=== PATIENT | male | born 1950 | race African-American/Black ===

== ENCOUNTER 2017-11-22 04:49 | Inpatient (IN) ==
[2017-11-22] MEDS ORDERED: SODIUM CHLORIDE 0.9% 2,000 ML IV STA (05:26)
[2017-11-22] MEDS ORDERED: SODIUM CHLORIDE 0.9% 1,000 ML IV STA (05:27)
[2017-11-22] MEDS ORDERED: metroNIDAZOLE INJ 500 MG in PREMIX 1 EACH IV STA (05:28)
[2017-11-22] MEDS ORDERED: VANCOMYCIN INJ 1,000 MG in SODIUM CHLORIDE 0.9% 250 ML IV STA (05:28)
[2017-11-22] MEDS ORDERED: CEFEPIME 2,000 MG in SODIUM CHLORIDE 0.9% 100 ML IV STA (05:28)
[2017-11-22] MEDS ORDERED: NOREPINEPHRINE 4 MG/4 ML VIAL IV ONE (05:36)
[2017-11-22 05:41] LABS: Basophils % 0.4 % (0.0-0.8); Hematocrit 50.1 VOL% (42.0-52.0); Hemoglobin 15.9 GM/DL (14.0-18.0); Immature Granulocytes % 1.7 %; Immature Granulocytes Absolute 0.08 #; Lymphocytes # 0.2 10*3/uL (1.4-4.0); Lymphocytes % 4.4 % (21.2-54.2); Mean Corpuscular HGB Conc 31.7 GM/DL (32-36); Mean Corpuscular Hemoglobin 31 PG (27-34); Mean Corpuscular Volume 96.2 FL (87-102); Mean Platelet Volume 11.6 FL (9.6-12.0); Monocytes # 0.1 10*3/uL (0.11-0.8); Monocytes % 2.1 % (1.7-12.7); Neutrophils # 4.4 10*3/uL (1.4-7.4); Neutrophils % 91.4 % (38.7-73.9); Platelet Count 62 T/CUMM (130-400); Red Blood Count 5.21 MC/CUMM (3.8-5.5); Red Cell Distribution Width 14.3 % (9.3-17.3); White Blood Count 4.8 T/CUMM (4-12)
[2017-11-22] MEDS: NOREPINEPHRINE 8 MG in SODIUM CHLORIDE 0.9% 242 ML IV SCH ×2 (05:45→17:44)
[2017-11-22 06:08] LABS: Hypochromasia 1+; Lymphocytes 4 % (20-55); Nucleated Red Blood Cells 2 (0-5); Platelet Estimate Decreased; Segmented Neutrophils 93 % (50-85); Total Cells Counted 100
[2017-11-22 06:19] LABS: Alanine Aminotransferase 349 U/L (16-61); Alkaline Phosphatase 265 U/L (45-117); Aspartate Amino Transferase 783 U/L (0-37); Blood Urea Nitrogen 63 MG/DL (7-18); Calcium 8.8 MG/DL (8.5-10.1); Glucose 84 MG/DL (74-106); Osmolality,Calculated 317.7 MOS/KG (273-304); Potassium 3.7 MMOL/L (3.5-5.1); Sodium 152 MMOL/L (136-145); Total Protein 5.9 G/DL (6.4-8.3)
[2017-11-22] MEDS ORDERED: ALBUTEROL 2.5 MG/3 ML NEB RESP TX PRN (07:45)
[2017-11-22] MEDS ORDERED: SODIUM CHLORIDE 0.9% 500 ML IV STA (07:58)
[2017-11-22] MEDS ORDERED: SODIUM CHLORIDE 0.9% 1,000 ML IV SCH (08:00)
[2017-11-22] MEDS ORDERED: SODIUM CHLORIDE 0.45% 1,000 ML IV SCH (08:30)
[2017-11-22] MEDS ORDERED: VANCOMYCIN 1,000 MG VIAL ONE (10:40)
[2017-11-22 10:51] LABS: Lactic Acid 2.2 MMOL/L (0.4-2.0)
[2017-11-22 11:18] LABS: Hepatitis A Ab IgM Quant 0.22 Index; Hepatitis A Ab IgM Result Negative (Negative); Hepatitis B Core IgM Quant 0.06 Index; Hepatitis B Core IgM Result Negative (Negative); Hepatitis B Surface Ag Quant < 0.10 Index; Hepatitis B Surface Ag Result Negative (Negative); Hepatitis C Virus Ab Quant 0.16 Index; Hepatitis C Virus Ab Result Negative (Negative)
[2017-11-22] MEDS ORDERED: metroNIDAZOLE 500 MG/100 ML PREMIX IV ONE (11:54)
[2017-11-22 13:06] LABS: Apearance,Urine CLOUDY (Clear); Bacteria,Urine Many /HPF (Few); Bilirubin,Urine Negative (Negative); Blood, Urine Large mg/dL (Negative); Glucose,Urine (UA) Negative (Negative); Ketones,Urine Negative (Negative); Mucus,Urine Few /LPF (Occasional); Nitrite,Urine Negative (Negative); Protein,Urine 100 MG/DL; RBC,Urine 105 /HPF (0-4); Squamous Epithelial Cell,Urine Moderate /HPF (0-10); Urine Color Amber (Yellow); Urine Specific Gravity 1.019 (1.001-1.035); WBC,Urine 1371 /HPF (0-6)
[2017-11-22] MEDS ORDERED: PIPERACILLIN/TAZOBACTAM 3,375 MG VIAL IV ONE (13:43)
[2017-11-22] MEDS: PIPERACILLIN/TAZOBACTAM 3,375 MG in SODIUM CHLORIDE 0.9% 100 ML IV SCH ×2 (13:50→18:39)
[2017-11-22] MEDS: SODIUM CHLORIDE 0.9% 1,000 ML IV SCH (14:50)
[2017-11-22] MEDS ORDERED: VANCOMYCIN INJ 1,500 MG in SODIUM CHLORIDE 0.9% 500 ML IV SCH (16:00)
[2017-11-22] MEDS ORDERED: VANCOMYCIN INJ 500 MG in SODIUM CHLORIDE 0.9% 100 ML IV ONE (16:00)
[2017-11-22] MEDS: PANTOPRAZOLE 40 MG VIAL IV SCH (18:38)
[2017-11-22 19:09] LABS: Calcium 7.8 MG/DL (8.5-10.1); Osmolality,Calculated 317.6 MOS/KG (273-304)
[2017-11-23] MEDS: PIPERACILLIN/TAZOBACTAM 3,375 MG in SODIUM CHLORIDE 0.9% 100 ML IV SCH ×4 (00:48→23:50)
[2017-11-23] MEDS: SODIUM CHLORIDE 0.9% 1,000 ML IV SCH (03:47)
[2017-11-23 05:27] LABS: Basophils % 0.2 % (0.0-0.8); Eosinophils % 0.2 % (0.00-10.9); Hemoglobin 9.2 GM/DL (14.0-18.0); Immature Granulocytes % 2.1 %; Immature Granulocytes Absolute 0.33 #; Lymphocytes # 1.2 10*3/uL (1.4-4.0); Lymphocytes % 7.4 % (21.2-54.2); Mean Corpuscular HGB Conc 30.7 GM/DL (32-36); Mean Corpuscular Hemoglobin 31 PG (27-34); Mean Platelet Volume 11.8 FL (9.6-12.0); Monocytes # 1.2 10*3/uL (0.11-0.8); Monocytes % 7.4 % (1.7-12.7); Neutrophils # 13.2 10*3/uL (1.4-7.4); Neutrophils % 82.7 % (38.7-73.9); Platelet Count 126 T/CUMM (130-400); Red Blood Count 2.97 MC/CUMM (3.8-5.5); Red Cell Distribution Width 14.6 % (9.3-17.3); White Blood Count 15.9 T/CUMM (4-12)
[2017-11-23 05:29] LABS: Albumin 1.7 G/DL (3.4-5.0); Bilirubin,Direct 0.23 MG/DL (0.0-0.20); Bilirubin,Indirect 0.9 MG/DL (0.0-1.0); Bilirubin,Total 1.1 MG/DL (0.2-1.0); Total Protein 5.6 G/DL (6.4-8.3)
[2017-11-23 06:17] LABS: Calcium 8.5 MG/DL (8.5-10.1); Osmolality,Calculated 317.3 MOS/KG (273-304)
[2017-11-23] MEDS ORDERED: MORPHINE 2 MG/1 ML SYRINGE IV ONE (08:10)
[2017-11-23] MEDS: PANTOPRAZOLE 40 MG VIAL IV SCH (09:00)
[2017-11-23] MEDS ORDERED: ETOMIDATE 40 MG/20 ML VIAL IV ONE (10:29)
[2017-11-23] MEDS ORDERED: ONDANSETRON 4 MG/2 ML VIAL ONE (10:29)
[2017-11-23] MEDS ORDERED: PHENYLEPHRINE 50 MG/5 ML VIAL ONE (10:30)
[2017-11-23] MEDS ORDERED: ROCURONIUM 100 MG/10 ML VIAL IV ONE (10:30)
[2017-11-23] MEDS ORDERED: SUCCINYLCHOLINE 200 MG/10 ML VIAL ONE (10:30)
[2017-11-23] MEDS ORDERED: SODIUM CHLORIDE 0.9% 250 ML IV ONE (10:30)
[2017-11-23 10:42] LABS: ABG Base Excess -8.2 MMOL/L (-2.5-2.5); ABG HCO3 17.6 MMOL/L (20-26); ABG Oxygen Saturation 99.2 % (95-100); ABG PCO2 37.2 MM HG (35-48); ABG PH 7.293 (7.35-7.45); ABG PO2 206.7 MM HG (80-95); ABG TCO2 18.7 MMOL/L (23-27); Allen Test Positive; Pt O2 Delivery Device Ventilator
[2017-11-23] MEDS ORDERED: LORazepam 2 MG/1 ML VIAL IV ONE (10:47)
[2017-11-23] MEDS ORDERED: VANCOMYCIN INJ 1,500 MG in SODIUM CHLORIDE 0.9% 500 ML IV SCH (11:00)
[2017-11-23] MEDS: PHENYLEPHRINE DRIP 40 MG/250 ML PREMIX IV SCH ×2 (11:00→13:19)
[2017-11-23] MEDS ORDERED: LORazepam 2 MG/1 ML VIAL IV PRN (11:17)
[2017-11-23] MEDS: SODIUM CHLORIDE 0.45% 1,000 ML IV SCH (11:30)
[2017-11-23] MEDS ORDERED: GENTAMICIN INJ 240 MG in SODIUM CHLORIDE 0.9% 100 ML IV SCH (12:30)
[2017-11-23] MEDS: MORPHINE 2 MG/1 ML SYRINGE IV PRN (12:50)
[2017-11-23] MEDS: NOREPINEPHRINE 8 MG in SODIUM CHLORIDE 0.9% 242 ML IV SCH (12:53)
[2017-11-23] MEDS ORDERED: PHENYLEPHRINE INJ 160 MG in SODIUM CHLORIDE 0.45% 250 ML IV SCH (15:00)
[2017-11-23 15:28] LABS: Osmolality,Calculated 318.2 MOS/KG (273-304); Potassium 3.6 MMOL/L (3.5-5.1)
[2017-11-23] MEDS: PHENYLEPHRINE INJ 160 MG in SODIUM CHLORIDE 0.45% 234 ML IV SCH (15:30)
[2017-11-23] MEDS: MAGNESIUM OXIDE 400 MG TABLET PO SCH ×2 (15:30→20:41)
[2017-11-23] MEDS: NOREPINEPHRINE IV SCH (15:32)
[2017-11-23] MEDS: SODIUM CHLORIDE 0.45% IV SCH (15:32)
[2017-11-23] MEDS: DEXTROSE 5% NACL 0.45% 1,000 ML IV SCH (16:00)
[2017-11-23] MEDS: DEXTROSE 50% 25 GM/50 ML VIAL IV PRN (20:15)
[2017-11-23] MEDS: CARVEDILOL 3.125 MG TABLET PO SCH (20:40)
[2017-11-23] MEDS: ACETAMINOPHEN 325 MG TABLET PO PRN (20:40)
[2017-11-24] MEDS: PHENYLEPHRINE INJ 160 MG in SODIUM CHLORIDE 0.45% 234 ML IV SCH ×4 (00:15→23:30)
[2017-11-24] MEDS: SODIUM CHLORIDE 0.45% IV SCH (00:36)
[2017-11-24] MEDS: NOREPINEPHRINE IV SCH (00:36)
[2017-11-24] MEDS: MORPHINE 2 MG/1 ML SYRINGE IV PRN ×2 (04:08→20:51)
[2017-11-24 04:41] LABS: Basophils # 0.1 10*3/uL (0.0-0.2); Basophils % 0.3 % (0.0-0.8); Eosinophils % 0.1 % (0.00-10.9); Immature Granulocytes % 4.7 %; Immature Granulocytes Absolute 1.74 #; Lymphocytes # 1.9 10*3/uL (1.4-4.0); Lymphocytes % 5.2 % (21.2-54.2); Mean Corpuscular Hemoglobin 31 PG (27-34); Mean Platelet Volume 11.1 FL (9.6-12.0); Monocytes # 1.5 10*3/uL (0.11-0.8); Monocytes % 4.1 % (1.7-12.7); NRBC # 0.03 10*3/uL; Neutrophils # 31.8 10*3/uL (1.4-7.4); Neutrophils % 85.6 % (38.7-73.9); Platelet Count 102 T/CUMM (130-400); Red Blood Count 2.94 MC/CUMM (3.8-5.5); Red Cell Distribution Width 15.2 % (9.3-17.3); White Blood Count 37.1 T/CUMM (4-12)
[2017-11-24] MEDS: DEXTROSE 5% NACL 0.45% 1,000 ML IV SCH (05:00)
[2017-11-24 05:06] LABS: ABG Base Excess -5.4 MMOL/L (-2.5-2.5); ABG Oxygen Saturation 99.8 % (95-100); ABG PCO2 39.1 MM HG (35-48); ABG PH 7.322 (7.35-7.45); ABG TCO2 18.8 MMOL/L (23-27); Allen Test Positive; Pt O2 Delivery Device Ventilator
[2017-11-24 05:12] LABS: Calcium 8.2 MG/DL (8.5-10.1); Osmolality,Calculated 320.3 MOS/KG (273-304); Potassium 4.2 MMOL/L (3.5-5.1)
[2017-11-24 05:58] LABS: Band Neutrophils 18 % (0-10); Lymphocytes 3 % (20-55); Platelet Estimate Adequate; Segmented Neutrophils 73 % (50-85); Total Cells Counted 100
[2017-11-24 05:59] LABS: Hypochromasia Slight; Polychromasia Slight
[2017-11-24] MEDS: LEVOTHYROXINE 25 MCG TABLET PO SCH (06:44)
[2017-11-24] MEDS ORDERED: RIVAROXABAN 20 MG TABLET PO SCH (09:00)
[2017-11-24] MEDS: PANTOPRAZOLE 40 MG VIAL IV SCH (09:54)
[2017-11-24] MEDS: PIPERACILLIN/TAZOBACTAM 3,375 MG in SODIUM CHLORIDE 0.9% 100 ML IV SCH (09:55)
[2017-11-24] MEDS: ASPIRIN 325 MG TABLET PO SCH (09:56)
[2017-11-24] MEDS: CARVEDILOL 3.125 MG TABLET PO SCH ×2 (09:56→23:32)
[2017-11-24] MEDS: TAMSULOSIN 0.4 MG CAPSULE PO SCH (09:56)
[2017-11-24] MEDS: CITALOPRAM 20 MG TABLET PO SCH (09:56)
[2017-11-24] MEDS: FINASTERIDE 5 MG TABLET PO SCH (09:56)
[2017-11-24] MEDS: MAGNESIUM OXIDE 400 MG TABLET PO SCH ×3 (09:56→20:48)
[2017-11-24] MEDS: NOREPINEPHRINE 8 MG in SODIUM CHLORIDE 0.9% 242 ML IV SCH ×2 (10:20→19:22)
[2017-11-24] MEDS ORDERED: AMIODARONE INJ 150 MG in DEXTROSE 5% 100 ML IV ONE (11:25)
[2017-11-24] MEDS ORDERED: AMIODARONE INJ 450 MG in DEXTROSE 5% 241 ML IV SCH ×2 (11:30→19:30)
[2017-11-24] MEDS ORDERED: AMIODARONE 150 MG/3 ML VIAL ONE (11:32)
[2017-11-24] MEDS ORDERED: GLUCAGON 1 MG VIAL IM PRN (12:03)
[2017-11-24] MEDS: cefTRIAXone 1,000 MG in SYRINGE 1 EACH IV SCH (14:40)
[2017-11-24] MEDS: DEXTROSE 5% 1,000 ML IV SCH ×3 (14:40→23:30)
[2017-11-24] MEDS: ENOXAPARIN 100 MG/ML SYRINGE SUBCUT SCH (14:41)
[2017-11-24] MEDS: INSULIN REGULAR 100 UNIT/ML SUBCUT SCH ×2 (15:10→18:11)
[2017-11-24] MEDS: AMIODARONE INJ 450 MG in DEXTROSE 5% 241 ML IV SCH (20:15)
[2017-11-25] MEDS: INSULIN REGULAR 100 UNIT/ML SUBCUT SCH ×4 (00:43→18:17)
[2017-11-25] MEDS: cefTRIAXone 1,000 MG in SYRINGE 1 EACH IV SCH ×2 (02:25→13:51)
[2017-11-25] MEDS: ENOXAPARIN 100 MG/ML SYRINGE SUBCUT SCH (02:25)
[2017-11-25] MEDS: MORPHINE 2 MG/1 ML SYRINGE IV PRN ×5 (02:27→20:30)
[2017-11-25] MEDS ORDERED: GENTAMICIN INJ 240 MG in SODIUM CHLORIDE 0.9% 100 ML IV SCH (03:00)
[2017-11-25 04:28] LABS: ABG Base Excess -5.6 MMOL/L (-2.5-2.5); ABG PCO2 39.5 MM HG (35-48); ABG PH 7.323 (7.35-7.45); ABG PO2 165.1 MM HG (80-95); ABG TCO2 21.2 MMOL/L (23-27)
[2017-11-25] MEDS: LEVOTHYROXINE 25 MCG TABLET PO SCH (06:04)
[2017-11-25] MEDS: NOREPINEPHRINE 8 MG in SODIUM CHLORIDE 0.9% 242 ML IV SCH (06:27)
[2017-11-25 07:51] LABS: Basophils % 0.1 % (0.0-0.8); Eosinophils # 0.1 10*3/uL (0.0-0.87); Eosinophils % 0.6 % (0.00-10.9); Hematocrit 28.7 VOL% (42.0-52.0); Hemoglobin 8.6 GM/DL (14.0-18.0); Immature Granulocytes % 1.6 %; Immature Granulocytes Absolute 0.38 #; Lymphocytes # 1.8 10*3/uL (1.4-4.0); Lymphocytes % 7.4 % (21.2-54.2); Mean Corpuscular Hemoglobin 31 PG (27-34); Mean Corpuscular Volume 102.5 FL (87-102); Mean Platelet Volume 11.4 FL (9.6-12.0); Monocytes # 0.8 10*3/uL (0.11-0.8); Monocytes % 3.1 % (1.7-12.7); NRBC # 0.02 10*3/uL; Neutrophils # 21.1 10*3/uL (1.4-7.4); Neutrophils % 87.2 % (38.7-73.9); Red Cell Distribution Width 15.3 % (9.3-17.3); White Blood Count 24.2 T/CUMM (4-12)
[2017-11-25 07:56] LABS: Platelet Count 98 T/CUMM (130-400)
[2017-11-25 07:58] LABS: PT Patient Result 10.7 SECS
[2017-11-25] MEDS: PANTOPRAZOLE 40 MG VIAL IV SCH (08:12)
[2017-11-25] MEDS: DEXTROSE 5% 1,000 ML IV SCH ×2 (08:12→16:32)
[2017-11-25] MEDS: ASPIRIN 325 MG TABLET PO SCH (08:13)
[2017-11-25] MEDS: CARVEDILOL 3.125 MG TABLET PO SCH ×2 (08:13→21:24)
[2017-11-25] MEDS: FINASTERIDE 5 MG TABLET PO SCH (08:13)
[2017-11-25] MEDS: MAGNESIUM OXIDE 400 MG TABLET PO SCH ×3 (08:13→21:24)
[2017-11-25] MEDS: TAMSULOSIN 0.4 MG CAPSULE PO SCH (08:13)
[2017-11-25 08:14] LABS: Band Neutrophils 3 % (0-10); Giant Platelets Few; Hypochromasia 1+; Lymphocytes 9 % (20-55); Platelet Estimate Decreased; Segmented Neutrophils 87 % (50-85); Total Cells Counted 100
[2017-11-25 08:24] LABS: Albumin 1.6 G/DL (3.4-5.0); Bilirubin,Total 0.8 MG/DL (0.2-1.0); Calcium 8.5 MG/DL (8.5-10.1); Magnesium 2.3 MG/DL (1.8-2.4); Potassium 4.1 MMOL/L (3.5-5.1); Total Protein 5.2 G/DL (6.4-8.3)
[2017-11-25 08:26] LABS: Prealbumin 9.3 MG/DL (20-40)
[2017-11-25] MEDS: CITALOPRAM 20 MG TABLET PO SCH (08:27)
[2017-11-25] MEDS: AMIODARONE INJ 450 MG in DEXTROSE 5% 241 ML IV SCH (12:34)
[2017-11-25] MEDS: PHENYLEPHRINE INJ 160 MG in SODIUM CHLORIDE 0.45% 234 ML IV SCH ×3 (13:51→23:00)
[2017-11-25] MEDS: RIVAROXABAN 15 MG TABLET PO SCH (16:13)
[2017-11-26] MEDS: DEXTROSE 5% 1,000 ML IV SCH ×2 (01:30→09:18)
[2017-11-26] MEDS: INSULIN REGULAR 100 UNIT/ML SUBCUT SCH ×4 (01:49→18:32)
[2017-11-26] MEDS: cefTRIAXone 1,000 MG in SYRINGE 1 EACH IV SCH ×2 (02:10→14:06)
[2017-11-26] MEDS: AMIODARONE INJ 450 MG in DEXTROSE 5% 241 ML IV SCH (02:50)
[2017-11-26 05:27] LABS: Basophils % 0.2 % (0.0-0.8); Eosinophils # 0.2 10*3/uL (0.0-0.87); Eosinophils % 0.9 % (0.00-10.9); Hematocrit 31.8 VOL% (42.0-52.0); Immature Granulocytes % 2.6 %; Lymphocytes # 1.4 10*3/uL (1.4-4.0); Lymphocytes % 7.2 % (21.2-54.2); Mean Corpuscular HGB Conc 31.4 GM/DL (32-36); Mean Corpuscular Hemoglobin 31 PG (27-34); Mean Corpuscular Volume 99.4 FL (87-102); Mean Platelet Volume 10.9 FL (9.6-12.0); Monocytes # 0.8 10*3/uL (0.11-0.8); Monocytes % 4.3 % (1.7-12.7); NRBC # 0.03 10*3/uL; Neutrophils # 16.2 10*3/uL (1.4-7.4); Neutrophils % 84.8 % (38.7-73.9); Platelet Count 111 T/CUMM (130-400); Red Cell Distribution Width 14.7 % (9.3-17.3); White Blood Count 19.1 T/CUMM (4-12)
[2017-11-26] MEDS: NOREPINEPHRINE 8 MG in SODIUM CHLORIDE 0.9% 242 ML IV SCH (05:47)
[2017-11-26] MEDS: MORPHINE 2 MG/1 ML SYRINGE IV PRN ×3 (05:55→21:00)
[2017-11-26] MEDS: LEVOTHYROXINE 25 MCG TABLET PO SCH (06:00)
[2017-11-26 06:03] LABS: Calcium 8.3 MG/DL (8.5-10.1); Potassium 3.8 MMOL/L (3.5-5.1)
[2017-11-26 06:04] LABS: Anisocytosis 1+; Platelet Estimate Adequate
[2017-11-26] MEDS: ASPIRIN 325 MG TABLET PO SCH (08:27)
[2017-11-26] MEDS: SODIUM CHLORIDE 0.45% 1,000 ML IV SCH ×4 (08:27→21:57)
[2017-11-26] MEDS: FINASTERIDE 5 MG TABLET PO SCH (08:27)
[2017-11-26] MEDS: MAGNESIUM OXIDE 400 MG TABLET PO SCH ×3 (08:27→20:39)
[2017-11-26] MEDS: PANTOPRAZOLE 40 MG VIAL IV SCH (08:27)
[2017-11-26] MEDS: CITALOPRAM 20 MG TABLET PO SCH (08:27)
[2017-11-26] MEDS: AMIODARONE 200 MG TABLET PO SCH (08:28)
[2017-11-26] MEDS: TAMSULOSIN 0.4 MG CAPSULE PO SCH (08:28)
[2017-11-26] MEDS: PHENYLEPHRINE INJ 160 MG in SODIUM CHLORIDE 0.45% 234 ML IV SCH ×2 (09:01→19:29)
[2017-11-26] MEDS ORDERED: ALBUTEROL/IPRATROPIUM 3 ML NEB RESP TX PRN (12:36)
[2017-11-26] MEDS: RIVAROXABAN 15 MG TABLET PO SCH (17:25)
[2017-11-27] MEDS: INSULIN REGULAR 100 UNIT/ML SUBCUT SCH ×4 (00:57→17:56)
[2017-11-27] MEDS: SODIUM CHLORIDE 0.45% 1,000 ML IV SCH ×3 (00:57→14:22)
[2017-11-27] MEDS: PHENYLEPHRINE INJ 160 MG in SODIUM CHLORIDE 0.45% 234 ML IV SCH ×3 (00:58→18:13)
[2017-11-27] MEDS: MORPHINE 2 MG/1 ML SYRINGE IV PRN ×4 (02:02→16:44)
[2017-11-27] MEDS: cefTRIAXone 1,000 MG in SYRINGE 1 EACH IV SCH ×2 (02:03→13:59)
[2017-11-27 03:49] LABS: Basophils % 0.2 % (0.0-0.8); Eosinophils # 0.2 10*3/uL (0.0-0.87); Eosinophils % 0.9 % (0.00-10.9); Hematocrit 28.1 VOL% (42.0-52.0); Hemoglobin 8.4 GM/DL (14.0-18.0); Immature Granulocytes % 3.3 %; Lymphocytes % 5.6 % (21.2-54.2); Mean Corpuscular HGB Conc 29.9 GM/DL (32-36); Mean Corpuscular Hemoglobin 31 PG (27-34); Mean Corpuscular Volume 102.6 FL (87-102); Mean Platelet Volume 11.2 FL (9.6-12.0); Monocytes # 0.8 10*3/uL (0.11-0.8); Monocytes % 4.6 % (1.7-12.7); Neutrophils # 15.6 10*3/uL (1.4-7.4); Neutrophils % 85.4 % (38.7-73.9); Platelet Count 104 T/CUMM (130-400); Red Blood Count 2.74 MC/CUMM (3.8-5.5); Red Cell Distribution Width 14.2 % (9.3-17.3); White Blood Count 18.2 T/CUMM (4-12)
[2017-11-27 04:10] LABS: Calcium 7.4 MG/DL (8.5-10.1); Magnesium 1.8 MG/DL (1.8-2.4); Osmolality,Calculated 282.1 MOS/KG (273-304); Potassium 3.5 MMOL/L (3.5-5.1)
[2017-11-27 04:44] LABS: Lymphocytes 5 % (20-55); Macrocytosis 2+; Platelet Estimate Decreased; Segmented Neutrophils 92 % (50-85); Total Cells Counted 100
[2017-11-27] MEDS: LEVOTHYROXINE 25 MCG TABLET PO SCH (06:16)
[2017-11-27] MEDS: CITALOPRAM 20 MG TABLET PO SCH (08:16)
[2017-11-27] MEDS: ASPIRIN 325 MG TABLET PO SCH (08:16)
[2017-11-27] MEDS: PANTOPRAZOLE 40 MG VIAL IV SCH (08:16)
[2017-11-27] MEDS: MAGNESIUM OXIDE 400 MG TABLET PO SCH ×3 (08:16→20:22)
[2017-11-27] MEDS: AMIODARONE 200 MG TABLET PO SCH (08:16)
[2017-11-27] MEDS: TAMSULOSIN 0.4 MG CAPSULE PO SCH (08:16)
[2017-11-27] MEDS: FINASTERIDE 5 MG TABLET PO SCH (08:16)
[2017-11-27] MEDS: RIVAROXABAN 15 MG TABLET PO SCH (17:51)
[2017-11-28] MEDS: DEXTROSE 50% 25 GM/50 ML VIAL IV PRN ×2 (00:25→12:27)
[2017-11-28] MEDS: INSULIN REGULAR 100 UNIT/ML SUBCUT SCH ×4 (00:31→18:13)
[2017-11-28] MEDS: SODIUM CHLORIDE 0.45% 1,000 ML IV SCH ×2 (00:31→18:25)
[2017-11-28] MEDS: cefTRIAXone 1,000 MG in SYRINGE 1 EACH IV SCH ×2 (02:00→17:07)
[2017-11-28] MEDS: MORPHINE 2 MG/1 ML SYRINGE IV PRN ×2 (04:35→23:42)
[2017-11-28 04:54] LABS: Basophils % 0.1 % (0.0-0.8); Eosinophils # 0.2 10*3/uL (0.0-0.87); Eosinophils % 1.2 % (0.00-10.9); Hematocrit 26.3 VOL% (42.0-52.0); Hemoglobin 8.2 GM/DL (14.0-18.0); Immature Granulocytes % 2.9 %; Immature Granulocytes Absolute 0.41 #; Lymphocytes # 1.3 10*3/uL (1.4-4.0); Lymphocytes % 9.1 % (21.2-54.2); Mean Corpuscular HGB Conc 31.2 GM/DL (32-36); Mean Corpuscular Hemoglobin 31 PG (27-34); Mean Corpuscular Volume 99.6 FL (87-102); Mean Platelet Volume 10.5 FL (9.6-12.0); Monocytes # 0.7 10*3/uL (0.11-0.8); Neutrophils # 11.3 10*3/uL (1.4-7.4); Neutrophils % 81.7 % (38.7-73.9); Platelet Count 144 T/CUMM (130-400); Red Blood Count 2.64 MC/CUMM (3.8-5.5); White Blood Count 13.9 T/CUMM (4-12)
[2017-11-28] MEDS: PHENYLEPHRINE INJ 160 MG in SODIUM CHLORIDE 0.45% 234 ML IV SCH ×2 (04:56→19:10)
[2017-11-28 05:11] LABS: Calcium 7.5 MG/DL (8.5-10.1); Magnesium 1.8 MG/DL (1.8-2.4); Osmolality,Calculated 278.3 MOS/KG (273-304); Potassium 3.2 MMOL/L (3.5-5.1)
[2017-11-28 05:14] LABS: Hypochromasia 1+
[2017-11-28 05:15] LABS: Platelet Estimate Adequate
[2017-11-28 05:46] LABS: Prealbumin 11.3 MG/DL (20-40)
[2017-11-28] MEDS: LEVOTHYROXINE 25 MCG TABLET PO SCH (06:01)
[2017-11-28] MEDS ORDERED: MAGNESIUM SULF RIDER 2 GM in PREMIX 1 EACH IV ONE (08:21)
[2017-11-28] MEDS ORDERED: POTASSIUM CHLORIDE RIDER 100 ML IV ONE (10:00)
[2017-11-28] MEDS: PANTOPRAZOLE 40 MG VIAL IV SCH (10:33)
[2017-11-28] MEDS: AMIODARONE 200 MG TABLET PO SCH (10:36)
[2017-11-28] MEDS: ASPIRIN 325 MG TABLET PO SCH (10:36)
[2017-11-28] MEDS: FINASTERIDE 5 MG TABLET PO SCH (10:36)
[2017-11-28] MEDS: POTASSIUM CHLORIDE 20 MEQ TABLET PO SCH (10:36)
[2017-11-28] MEDS: CITALOPRAM 20 MG TABLET PO SCH (10:37)
[2017-11-28] MEDS: TAMSULOSIN 0.4 MG CAPSULE PO SCH (10:38)
[2017-11-28] MEDS: MAGNESIUM OXIDE 400 MG TABLET PO SCH ×3 (10:38→20:47)
[2017-11-28] MEDS ORDERED: POTASSIUM CHLORIDE RIDER 20 MEQ in PREMIX 1 EACH IV ONE (11:30)
[2017-11-28] MEDS: POTASSIUM CHLORIDE RIDER 10 MEQ in PREMIX 1 EACH IV SCH (11:54)
[2017-11-28] MEDS: ASCORBIC ACID 500 MG TABLET PO SCH ×2 (12:26→20:47)
[2017-11-28] MEDS: RIVAROXABAN 15 MG TABLET PO SCH (17:08)
[2017-11-29] MEDS: cefTRIAXone 1,000 MG in SYRINGE 1 EACH IV SCH ×2 (01:55→14:20)
[2017-11-29 04:47] LABS: Basophils % 0.2 % (0.0-0.8); Eosinophils # 0.1 10*3/uL (0.0-0.87); Eosinophils % 1.2 % (0.00-10.9); Hematocrit 25.1 VOL% (42.0-52.0); Hemoglobin 7.6 GM/DL (14.0-18.0); Immature Granulocytes % 4.5 %; Immature Granulocytes Absolute 0.54 #; Lymphocytes % 8.7 % (21.2-54.2); Mean Corpuscular HGB Conc 30.3 GM/DL (32-36); Mean Corpuscular Hemoglobin 30 PG (27-34); Mean Corpuscular Volume 100.4 FL (87-102); Mean Platelet Volume 10.4 FL (9.6-12.0); Monocytes # 0.9 10*3/uL (0.11-0.8); Monocytes % 7.2 % (1.7-12.7); Neutrophils # 9.4 10*3/uL (1.4-7.4); Neutrophils % 78.2 % (38.7-73.9); Platelet Count 189 T/CUMM (130-400); Red Cell Distribution Width 13.8 % (9.3-17.3)
[2017-11-29 05:08] LABS: Eosinophils 1 % (0-10); Hypochromasia 1+; Lymphocytes 11 % (20-55); Segmented Neutrophils 83 % (50-85); Total Cells Counted 100
[2017-11-29 05:09] LABS: Macrocytosis 1+
[2017-11-29 05:15] LABS: Calcium 7.4 MG/DL (8.5-10.1); Osmolality,Calculated 275.4 MOS/KG (273-304); Potassium 3.2 MMOL/L (3.5-5.1)
[2017-11-29] MEDS: SODIUM CHLORIDE 0.45% 1,000 ML IV SCH ×4 (05:53→23:13)
[2017-11-29] MEDS: INSULIN REGULAR 100 UNIT/ML SUBCUT SCH ×4 (05:53→18:40)
[2017-11-29] MEDS: LEVOTHYROXINE 25 MCG TABLET PO SCH (06:10)
[2017-11-29] MEDS ORDERED: SODIUM CHLORIDE 0.9% 1,000 ML IV PRN ×2 (08:21→14:12)
[2017-11-29] MEDS ORDERED: POTASSIUM CHLORIDE RIDER 10 MEQ in PREMIX 1 EACH IV PRN (09:01)
[2017-11-29] MEDS: ASCORBIC ACID 500 MG TABLET PO SCH ×2 (09:21→20:12)
[2017-11-29] MEDS: CITALOPRAM 20 MG TABLET PO SCH (09:21)
[2017-11-29] MEDS: AMIODARONE 200 MG TABLET PO SCH (09:22)
[2017-11-29] MEDS: FINASTERIDE 5 MG TABLET PO SCH (09:22)
[2017-11-29] MEDS: ASPIRIN 325 MG TABLET PO SCH (09:22)
[2017-11-29] MEDS: POTASSIUM CHLORIDE 20 MEQ TABLET PO SCH (09:23)
[2017-11-29] MEDS: MAGNESIUM OXIDE 400 MG TABLET PO SCH ×3 (09:24→20:12)
[2017-11-29] MEDS: TAMSULOSIN 0.4 MG CAPSULE PO SCH (09:24)
[2017-11-29] MEDS: PANTOPRAZOLE 40 MG VIAL IV SCH (09:26)
[2017-11-29] MEDS: PHENYLEPHRINE INJ 160 MG in SODIUM CHLORIDE 0.45% 234 ML IV SCH (17:10)
[2017-11-29] MEDS: RIVAROXABAN 15 MG TABLET PO SCH (17:49)
[2017-11-29] MEDS: MIDODRINE 5 MG TABLET PO SCH (20:12)
[2017-11-29] MEDS: MORPHINE 10 MG/1 ML VIAL IV PRN (23:10)
[2017-11-29 23:20] LABS: Hematocrit 25.5 VOL% (42.0-52.0)
[2017-11-30] MEDS: INSULIN REGULAR 100 UNIT/ML SUBCUT SCH ×4 (01:08→18:28)
[2017-11-30] MEDS: cefTRIAXone 1,000 MG in SYRINGE 1 EACH IV SCH ×2 (02:12→15:03)
[2017-11-30] MEDS: MORPHINE 10 MG/1 ML VIAL IV PRN ×2 (02:42→22:07)
[2017-11-30] MEDS: LEVOTHYROXINE 25 MCG TABLET PO SCH (06:12)
[2017-11-30 06:20] LABS: Basophils % 0.3 % (0.0-0.8); Eosinophils # 0.1 10*3/uL (0.0-0.87); Eosinophils % 1.4 % (0.00-10.9); Hematocrit 25.5 VOL% (42.0-52.0); Hemoglobin 7.9 GM/DL (14.0-18.0); Immature Granulocytes Absolute 0.38 #; Lymphocytes # 1.2 10*3/uL (1.4-4.0); Mean Corpuscular Hemoglobin 30 PG (27-34); Mean Corpuscular Volume 97.7 FL (87-102); Mean Platelet Volume 10.3 FL (9.6-12.0); Monocytes # 0.7 10*3/uL (0.11-0.8); Monocytes % 7.7 % (1.7-12.7); Neutrophils # 6.9 10*3/uL (1.4-7.4); Neutrophils % 73.6 % (38.7-73.9); Platelet Count 190 T/CUMM (130-400); Red Blood Count 2.61 MC/CUMM (3.8-5.5); Red Cell Distribution Width 14.7 % (9.3-17.3); White Blood Count 9.4 T/CUMM (4-12)
[2017-11-30 06:52] LABS: Calcium 7.4 MG/DL (8.5-10.1); Potassium 3.4 MMOL/L (3.5-5.1)
[2017-11-30] MEDS: SODIUM CHLORIDE 0.45% 1,000 ML IV SCH ×2 (07:55→16:58)
[2017-11-30] MEDS: MIDODRINE 5 MG TABLET PO SCH ×2 (08:48→20:54)
[2017-11-30] MEDS: ZINC OXIDE PASTE 113 GM TUBE TOP SCH ×2 (08:48→20:53)
[2017-11-30] MEDS: ASCORBIC ACID 500 MG TABLET PO SCH ×2 (08:48→20:54)
[2017-11-30] MEDS: FINASTERIDE 5 MG TABLET PO SCH (08:48)
[2017-11-30] MEDS: ASPIRIN 325 MG TABLET PO SCH (08:48)
[2017-11-30] MEDS: CITALOPRAM 20 MG TABLET PO SCH (08:49)
[2017-11-30] MEDS: TAMSULOSIN 0.4 MG CAPSULE PO SCH (08:49)
[2017-11-30] MEDS: MAGNESIUM OXIDE 400 MG TABLET PO SCH ×3 (08:49→20:54)
[2017-11-30] MEDS: AMIODARONE 200 MG TABLET PO SCH (08:49)
[2017-11-30] MEDS: POTASSIUM CHLORIDE RIDER 20 MEQ in PREMIX 1 EACH IV PRN ×2 (08:50→11:05)
[2017-11-30] MEDS: PANTOPRAZOLE 40 MG VIAL IV SCH (08:50)
[2017-11-30] MEDS: POTASSIUM CHLORIDE 20 MEQ TABLET PO SCH (08:51)
[2017-11-30] MEDS: PHENYLEPHRINE INJ 160 MG in SODIUM CHLORIDE 0.45% 234 ML IV SCH (16:58)
[2017-11-30] MEDS: RIVAROXABAN 15 MG TABLET PO SCH (16:58)
[2017-12-01] MEDS: MORPHINE 10 MG/1 ML VIAL IV PRN
[2017-12-01] MEDS: INSULIN REGULAR 100 UNIT/ML SUBCUT SCH ×4 (00:16→19:00)
[2017-12-01] MEDS: cefTRIAXone 1,000 MG in SYRINGE 1 EACH IV SCH ×2 (02:25→14:39)
[2017-12-01 05:19] LABS: Basophils % 0.2 % (0.0-0.8); Eosinophils # 0.1 10*3/uL (0.0-0.87); Eosinophils % 1.3 % (0.00-10.9); Hematocrit 23.8 VOL% (42.0-52.0); Hemoglobin 7.6 GM/DL (14.0-18.0); Immature Granulocytes % 1.9 %; Immature Granulocytes Absolute 0.19 #; Lymphocytes # 1.1 10*3/uL (1.4-4.0); Lymphocytes % 10.8 % (21.2-54.2); Mean Corpuscular HGB Conc 31.9 GM/DL (32-36); Mean Corpuscular Hemoglobin 31 PG (27-34); Mean Corpuscular Volume 95.6 FL (87-102); Mean Platelet Volume 10.2 FL (9.6-12.0); Monocytes # 0.6 10*3/uL (0.11-0.8); Monocytes % 6.1 % (1.7-12.7); Neutrophils # 8.1 10*3/uL (1.4-7.4); Neutrophils % 79.7 % (38.7-73.9); Platelet Count 218 T/CUMM (130-400); Red Blood Count 2.49 MC/CUMM (3.8-5.5); Red Cell Distribution Width 14.9 % (9.3-17.3); White Blood Count 10.1 T/CUMM (4-12)
[2017-12-01 05:39] LABS: Calcium 7.1 MG/DL (8.5-10.1); Magnesium 1.7 MG/DL (1.8-2.4); Osmolality,Calculated 274.4 MOS/KG (273-304); Potassium 3.4 MMOL/L (3.5-5.1)
[2017-12-01 05:54] LABS: Band Neutrophils 6 % (0-10); Eosinophils 1 % (0-10); Lymphocytes 13 % (20-55); Metamyelocytes 2 %; Segmented Neutrophils 76 % (50-85); Total Cells Counted 100
[2017-12-01 05:55] LABS: Microcytosis Slight
[2017-12-01 05:56] LABS: Hypochromasia 1+; Platelet Estimate Normal
[2017-12-01] MEDS: POTASSIUM CHLORIDE RIDER 20 MEQ in PREMIX 1 EACH IV PRN (05:58)
[2017-12-01] MEDS ORDERED: MAGNESIUM SULF RIDER 2 GM in PREMIX 1 EACH IV ONE (07:42)
[2017-12-01] MEDS: PANTOPRAZOLE 40 MG VIAL IV SCH (09:10)
[2017-12-01] MEDS: MAGNESIUM OXIDE 400 MG TABLET PO SCH (09:25)
[2017-12-01] MEDS: AMIODARONE 200 MG TABLET PO SCH (09:25)
[2017-12-01] MEDS: ASPIRIN 325 MG TABLET PO SCH (09:25)
[2017-12-01] MEDS: LEVOTHYROXINE 25 MCG TABLET PO SCH (09:25)
[2017-12-01] MEDS: TAMSULOSIN 0.4 MG CAPSULE PO SCH (09:25)
[2017-12-01] MEDS: ASCORBIC ACID 500 MG TABLET PO SCH ×2 (09:25→21:15)
[2017-12-01] MEDS: FINASTERIDE 5 MG TABLET PO SCH (09:25)
[2017-12-01] MEDS: CITALOPRAM 20 MG TABLET PO SCH (09:25)
[2017-12-01] MEDS: POTASSIUM CHLORIDE 20 MEQ TABLET PO SCH (09:25)
[2017-12-01] MEDS: MIDODRINE 5 MG TABLET PO SCH ×3 (09:25→21:15)
[2017-12-01] MEDS: POTASSIUM CHLORIDE RIDER 20 MEQ in PREMIX 1 EACH IV SCH ×2 (09:26→09:27)
[2017-12-01] MEDS: ZINC OXIDE PASTE 113 GM TUBE TOP SCH ×2 (10:21→21:21)
[2017-12-01] MEDS: SODIUM CHLORIDE 0.45% 1,000 ML IV SCH ×2 (10:36→11:46)
[2017-12-01] MEDS ORDERED: MORPHINE 10 MG/1 ML VIAL IV PRN (13:26)
[2017-12-01] MEDS ORDERED: SODIUM CHLORIDE 0.9% 1,000 ML IV PRN ×2 (13:26→18:16)
[2017-12-01] MEDS: RIVAROXABAN 15 MG TABLET PO SCH (16:30)
[2017-12-01] MEDS: ONDANSETRON 4 MG/2 ML VIAL IV PRN (21:15)
[2017-12-02] MEDS: INSULIN REGULAR 100 UNIT/ML SUBCUT SCH ×4 (00:26→17:38)
[2017-12-02] MEDS: cefTRIAXone 1,000 MG in SYRINGE 1 EACH IV SCH (01:43)
[2017-12-02] MEDS: ONDANSETRON 4 MG/2 ML VIAL IV PRN (01:56)
[2017-12-02] MEDS: LEVOTHYROXINE 25 MCG TABLET PO SCH (06:08)
[2017-12-02] MEDS ORDERED: diphenhydrAMINE CAP 50 MG CAPSULE PO ONE (06:16)
[2017-12-02 07:00] LABS: Basophils # 0.1 10*3/uL (0.0-0.2); Basophils % 0.3 % (0.0-0.8); Eosinophils # 0.1 10*3/uL (0.0-0.87); Eosinophils % 0.7 % (0.00-10.9); Hematocrit 31.9 VOL% (42.0-52.0); Hemoglobin 10.2 GM/DL (14.0-18.0); Immature Granulocytes % 1.4 %; Immature Granulocytes Absolute 0.26 #; Lymphocytes # 1.1 10*3/uL (1.4-4.0); Lymphocytes % 6.1 % (21.2-54.2); Mean Corpuscular Hemoglobin 31 PG (27-34); Mean Corpuscular Volume 95.8 FL (87-102); Mean Platelet Volume 10.2 FL (9.6-12.0); Monocytes # 0.8 10*3/uL (0.11-0.8); Monocytes % 4.2 % (1.7-12.7); Neutrophils # 16.1 10*3/uL (1.4-7.4); Neutrophils % 87.3 % (38.7-73.9); Platelet Count 276 T/CUMM (130-400); Red Blood Count 3.33 MC/CUMM (3.8-5.5); Red Cell Distribution Width 15.6 % (9.3-17.3); White Blood Count 18.5 T/CUMM (4-12)
[2017-12-02 07:31] LABS: Bilirubin,Direct 0.19 MG/DL (0.0-0.20); Bilirubin,Indirect 0.3 MG/DL (0.0-1.0); Bilirubin,Total 0.5 MG/DL (0.2-1.0); Calcium 8.2 MG/DL (8.5-10.1); Magnesium 1.9 MG/DL (1.8-2.4); Osmolality,Calculated 275.3 MOS/KG (273-304); Potassium 4.4 MMOL/L (3.5-5.1); Total Protein 5.4 G/DL (6.4-8.3)
[2017-12-02 07:39] LABS: Hypochromasia 1+
[2017-12-02 07:40] LABS: Microcytosis 1+; Platelet Estimate Normal
[2017-12-02] MEDS ORDERED: LEVOFLOXACIN INJ 750 MG in PREMIX 1 EACH IV SCH (08:30)
[2017-12-02] MEDS: ASCORBIC ACID 500 MG TABLET PO SCH ×2 (10:42→20:05)
[2017-12-02] MEDS: ASPIRIN 325 MG TABLET PO SCH (10:42)
[2017-12-02] MEDS: ZINC OXIDE PASTE 113 GM TUBE TOP SCH ×2 (10:43→20:06)
[2017-12-02] MEDS: CITALOPRAM 20 MG TABLET PO SCH (10:43)
[2017-12-02] MEDS: TAMSULOSIN 0.4 MG CAPSULE PO SCH (10:43)
[2017-12-02] MEDS: AMIODARONE 200 MG TABLET PO SCH (10:43)
[2017-12-02] MEDS: FINASTERIDE 5 MG TABLET PO SCH (10:43)
[2017-12-02] MEDS: MIDODRINE 5 MG TABLET PO SCH ×3 (10:43→20:05)
[2017-12-02] MEDS: POTASSIUM CHLORIDE 20 MEQ TABLET PO SCH (10:43)
[2017-12-02] MEDS ORDERED: ERGOCALCIFEROL 50,000 UNIT CAPSULE PO SCH (14:00)
[2017-12-02] MEDS: AZTREONAM 2,000 MG in SYRINGE 1 EACH IV SCH ×2 (15:07→23:12)
[2017-12-02] MEDS: RIVAROXABAN 15 MG TABLET PO SCH (18:39)
[2017-12-02] MEDS: ACETAMINOPHEN 325 MG TABLET PO PRN (20:05)
[2017-12-02] MEDS: diphenhydrAMINE CAP 50 MG CAPSULE PO PRN (20:05)
[2017-12-03] MEDS: INSULIN REGULAR 100 UNIT/ML SUBCUT SCH ×5 (00:29→23:51)
[2017-12-03] MEDS: AZTREONAM 2,000 MG in SYRINGE 1 EACH IV SCH ×3 (06:01→22:57)
[2017-12-03] MEDS: LEVOTHYROXINE 25 MCG TABLET PO SCH (06:02)
[2017-12-03] MEDS: FINASTERIDE 5 MG TABLET PO SCH (09:18)
[2017-12-03] MEDS: CITALOPRAM 20 MG TABLET PO SCH (09:18)
[2017-12-03] MEDS: TAMSULOSIN 0.4 MG CAPSULE PO SCH (09:18)
[2017-12-03] MEDS: AMIODARONE 200 MG TABLET PO SCH (09:18)
[2017-12-03] MEDS: MIDODRINE 5 MG TABLET PO SCH ×3 (09:18→20:46)
[2017-12-03] MEDS: ZINC OXIDE PASTE 113 GM TUBE TOP SCH ×2 (09:18→20:45)
[2017-12-03] MEDS: ASCORBIC ACID 500 MG TABLET PO SCH ×2 (09:18→20:46)
[2017-12-03] MEDS: ASPIRIN 325 MG TABLET PO SCH (09:18)
[2017-12-03] MEDS: POTASSIUM CHLORIDE 20 MEQ TABLET PO SCH (09:18)
[2017-12-03 11:35] LABS: Basophils # 0.1 10*3/uL (0.0-0.2); Basophils % 0.3 % (0.0-0.8); Eosinophils # 0.2 10*3/uL (0.0-0.87); Eosinophils % 0.9 % (0.00-10.9); Hematocrit 32.3 VOL% (42.0-52.0); Hemoglobin 10.2 GM/DL (14.0-18.0); Immature Granulocytes Absolute 0.18 #; Lymphocytes # 1.3 10*3/uL (1.4-4.0); Lymphocytes % 6.8 % (21.2-54.2); Mean Corpuscular HGB Conc 31.6 GM/DL (32-36); Mean Corpuscular Hemoglobin 31 PG (27-34); Mean Corpuscular Volume 97.6 FL (87-102); Mean Platelet Volume 9.8 FL (9.6-12.0); Monocytes # 0.8 10*3/uL (0.11-0.8); Monocytes % 4.4 % (1.7-12.7); Neutrophils # 15.9 10*3/uL (1.4-7.4); Neutrophils % 86.6 % (38.7-73.9); Platelet Count 283 T/CUMM (130-400); Red Blood Count 3.31 MC/CUMM (3.8-5.5); Red Cell Distribution Width 15.5 % (9.3-17.3); White Blood Count 18.4 T/CUMM (4-12)
[2017-12-03] MEDS: RIVAROXABAN 15 MG TABLET PO SCH (16:22)
[2017-12-03] MEDS: diphenhydrAMINE CAP 50 MG CAPSULE PO PRN (18:42)
[2017-12-03] MEDS: ACETAMINOPHEN 325 MG TABLET PO PRN (20:45)
[2017-12-04] MEDS: INSULIN REGULAR 100 UNIT/ML SUBCUT SCH ×3 (05:57→17:56)
[2017-12-04] MEDS: LEVOTHYROXINE 25 MCG TABLET PO SCH (06:02)
[2017-12-04] MEDS: AZTREONAM 2,000 MG in SYRINGE 1 EACH IV SCH ×3 (06:02→23:41)
[2017-12-04 06:13] LABS: Basophils % 0.3 % (0.0-0.8); Eosinophils # 0.2 10*3/uL (0.0-0.87); Eosinophils % 1.3 % (0.00-10.9); Hematocrit 30.2 VOL% (42.0-52.0); Hemoglobin 9.8 GM/DL (14.0-18.0); Immature Granulocytes % 1.4 %; Immature Granulocytes Absolute 0.17 #; Lymphocytes # 1.4 10*3/uL (1.4-4.0); Lymphocytes % 11.4 % (21.2-54.2); Mean Corpuscular HGB Conc 32.5 GM/DL (32-36); Mean Corpuscular Hemoglobin 31 PG (27-34); Mean Platelet Volume 9.9 FL (9.6-12.0); Monocytes # 0.9 10*3/uL (0.11-0.8); Monocytes % 6.9 % (1.7-12.7); Neutrophils # 9.8 10*3/uL (1.4-7.4); Neutrophils % 78.7 % (38.7-73.9); Platelet Count 287 T/CUMM (130-400); Red Blood Count 3.18 MC/CUMM (3.8-5.5); Red Cell Distribution Width 15.4 % (9.3-17.3); White Blood Count 12.5 T/CUMM (4-12)
[2017-12-04 06:41] LABS: Calcium 8.2 MG/DL (8.5-10.1); Osmolality,Calculated 273.4 MOS/KG (273-304); Potassium 3.9 MMOL/L (3.5-5.1)
[2017-12-04] MEDS: ASCORBIC ACID 500 MG TABLET PO SCH ×2 (09:40→21:32)
[2017-12-04] MEDS: AMIODARONE 200 MG TABLET PO SCH (09:40)
[2017-12-04] MEDS: CITALOPRAM 20 MG TABLET PO SCH (09:40)
[2017-12-04] MEDS: ASPIRIN 325 MG TABLET PO SCH (09:40)
[2017-12-04] MEDS: FINASTERIDE 5 MG TABLET PO SCH (09:40)
[2017-12-04] MEDS: MIDODRINE 5 MG TABLET PO SCH ×3 (09:40→21:32)
[2017-12-04] MEDS: ZINC OXIDE PASTE 113 GM TUBE TOP SCH ×2 (09:40→21:38)
[2017-12-04] MEDS: POTASSIUM CHLORIDE 20 MEQ TABLET PO SCH (09:40)
[2017-12-04] MEDS: TAMSULOSIN 0.4 MG CAPSULE PO SCH (09:40)
[2017-12-04] MEDS: POTASSIUM CHLORIDE RIDER 20 MEQ in PREMIX 1 EACH IV PRN (09:52)
[2017-12-04] MEDS: DEXTROSE 5% 1,000 ML IV SCH ×2 (11:41→21:38)
[2017-12-04] MEDS: RIVAROXABAN 15 MG TABLET PO SCH (16:32)
[2017-12-04] MEDS: ACETAMINOPHEN 325 MG TABLET PO PRN (21:32)
[2017-12-05] MEDS: INSULIN REGULAR 100 UNIT/ML SUBCUT SCH ×4 (01:15→18:18)
[2017-12-05] MEDS: AZTREONAM 2,000 MG in SYRINGE 1 EACH IV SCH ×2 (07:02→16:47)
[2017-12-05] MEDS: LEVOTHYROXINE 25 MCG TABLET PO SCH (07:02)
[2017-12-05] MEDS: CITALOPRAM 20 MG TABLET PO SCH (08:58)
[2017-12-05] MEDS: POTASSIUM CHLORIDE 20 MEQ TABLET PO SCH (08:58)
[2017-12-05] MEDS: MIDODRINE 5 MG TABLET PO SCH ×3 (08:58→21:35)
[2017-12-05] MEDS: ASPIRIN 325 MG TABLET PO SCH (08:58)
[2017-12-05] MEDS: TAMSULOSIN 0.4 MG CAPSULE PO SCH (08:59)
[2017-12-05] MEDS: diphenhydrAMINE CAP 50 MG CAPSULE PO PRN (08:59)
[2017-12-05] MEDS: FINASTERIDE 5 MG TABLET PO SCH (08:59)
[2017-12-05] MEDS: ASCORBIC ACID 500 MG TABLET PO SCH ×2 (08:59→21:35)
[2017-12-05] MEDS: AMIODARONE 200 MG TABLET PO SCH (08:59)
[2017-12-05] MEDS: ZINC OXIDE PASTE 113 GM TUBE TOP SCH ×2 (09:01→21:38)
[2017-12-05] MEDS: RIVAROXABAN 15 MG TABLET PO SCH (16:46)
[2017-12-05] MEDS: DEXTROSE 5% 1,000 ML IV SCH (18:17)
[2017-12-06] MEDS: AZTREONAM 2,000 MG in SYRINGE 1 EACH IV SCH ×2 (00:37→06:16)
[2017-12-06] MEDS: INSULIN REGULAR 100 UNIT/ML SUBCUT SCH ×3 (00:37→12:49)
[2017-12-06] MEDS: LEVOTHYROXINE 25 MCG TABLET PO SCH (06:16)
[2017-12-06] MEDS: MIDODRINE 5 MG TABLET PO SCH (09:30)
[2017-12-06] MEDS: ASCORBIC ACID 500 MG TABLET PO SCH (09:30)
[2017-12-06] MEDS: AMIODARONE 200 MG TABLET PO SCH (09:30)
[2017-12-06] MEDS: FINASTERIDE 5 MG TABLET PO SCH (09:30)
[2017-12-06] MEDS: CITALOPRAM 20 MG TABLET PO SCH (09:30)
[2017-12-06] MEDS: ASPIRIN 325 MG TABLET PO SCH (09:30)
[2017-12-06] MEDS: TAMSULOSIN 0.4 MG CAPSULE PO SCH (09:30)
[2017-12-06] MEDS: ZINC OXIDE PASTE 113 GM TUBE TOP SCH (09:30)
[2017-12-06] MEDS: POTASSIUM CHLORIDE 20 MEQ TABLET PO SCH (09:30)
[2017-12-06 12:04] VITALS: BP 93/55
[2017-12-06] MEDS: DEXTROSE 5% 1,000 ML IV SCH (14:52)
== END 2017-12-06 15:06 | DRG 853 ==
LOC: EDUNIT# → EDBD → N.ED 04:49 → N.EDINP 06:47 → SUATTDRO 06:47 → N.ICU 16:36 → N.5E 12-01 18:07
PROVIDERS: ADMIT Internal Medicine; ATTEND Hospitalist

== ENCOUNTER 2018-01-17 12:00 | Inpatient (IN) ==
[~2018-01-17 12:00] MED LIST: LEVOFLOXACIN INJ 500 MG in PREMIX 1 EACH IV ONE
[2018-01-30 14:35] LABS: Basophils % 0.7 % (0.0-0.8); Eosinophils # 0.2 10*3/uL (0.0-0.87); Eosinophils % 3.9 % (0.00-10.9); Hematocrit 36.5 VOL% (42.0-52.0); Hemoglobin 11.5 GM/DL (14.0-18.0); Immature Granulocytes % 0.2 %; Immature Granulocytes Absolute 0.01 #; Lymphocytes # 1.1 10*3/uL (1.4-4.0); Lymphocytes % 27.6 % (21.2-54.2); Mean Corpuscular HGB Conc 31.5 GM/DL (32-36); Mean Corpuscular Hemoglobin 32 PG (27-34); Mean Corpuscular Volume 100.6 FL (87-102); Mean Platelet Volume 9.5 FL (9.6-12.0); Monocytes # 0.4 10*3/uL (0.11-0.8); Monocytes % 9.9 % (1.7-12.7); Neutrophils # 2.4 10*3/uL (1.4-7.4); Neutrophils % 57.7 % (38.7-73.9); Platelet Count 143 T/CUMM (130-400); Red Blood Count 3.63 MC/CUMM (3.8-5.5); White Blood Count 4.1 T/CUMM (4-12)
[2018-01-30 14:51] LABS: Alanine Aminotransferase 12 U/L (16-61); Albumin 3.4 G/DL (3.4-5.0); Alkaline Phosphatase 53 U/L (45-117); Aspartate Amino Transferase 10 U/L (0-37); Bilirubin,Total < 0.39 MG/DL (0.2-1.0); Blood Urea Nitrogen 16 MG/DL (7-18); Calcium 9.5 MG/DL (8.5-10.1); Glucose 121 MG/DL (74-106); Osmolality,Calculated 282.3 MOS/KG (273-304); Potassium 4.3 MMOL/L (3.5-5.1); Sodium 141 MMOL/L (136-145)
[2018-01-30] MEDS ORDERED: GENTAMICIN IV SCH (18:00)
[2018-01-30] MEDS ORDERED: SODIUM CHLORIDE 0.9% IV SCH (18:00)
[2018-01-30] MEDS ORDERED: diphenhydrAMINE 50 MG/1 ML VIAL IV PRN (19:34)
[2018-01-30] MEDS ORDERED: ONDANSETRON 4 MG/2 ML VIAL IV PRN (19:35)
[2018-01-30] MEDS ORDERED: ACETAMINOPHEN 325 MG TABLET PO PRN (19:36)
[2018-01-30] MEDS: MELATONIN 3 MG TABLET PO SCH (21:33)
[2018-01-30] MEDS: MORPHINE 2 MG/1 ML SYRINGE IV PRN (21:33)
[2018-01-30] MEDS: LACTATED RINGERS 1,000 ML IV SCH (21:34)
[2018-01-30] MEDS: LINEZOLID INJ 600 MG in PREMIX 1 EACH IV SCH (23:52)
[2018-01-30] MEDS: AZTREONAM 2,000 MG in SYRINGE 1 EACH IV SCH (23:53)
[2018-01-31 06:28] LABS: Basophils % 0.7 % (0.0-0.8); Eosinophils # 0.3 10*3/uL (0.0-0.87); Eosinophils % 6.2 % (0.00-10.9); Hematocrit 32.9 VOL% (42.0-52.0); Hemoglobin 10.4 GM/DL (14.0-18.0); Immature Granulocytes % 0.2 %; Immature Granulocytes Absolute 0.01 #; Lymphocytes # 1.7 10*3/uL (1.4-4.0); Mean Corpuscular HGB Conc 31.6 GM/DL (32-36); Mean Corpuscular Hemoglobin 32 PG (27-34); Mean Platelet Volume 9.7 FL (9.6-12.0); Monocytes # 0.4 10*3/uL (0.11-0.8); Monocytes % 10.6 % (1.7-12.7); NRBC # 0.02 10*3/uL; Neutrophils # 1.8 10*3/uL (1.4-7.4); Neutrophils % 42.3 % (38.7-73.9); Platelet Count 113 T/CUMM (130-400); Red Blood Count 3.29 MC/CUMM (3.8-5.5); Red Cell Distribution Width 13.9 % (9.3-17.3); White Blood Count 4.2 T/CUMM (4-12)
[2018-01-31] MEDS: AZTREONAM 2,000 MG in SYRINGE 1 EACH IV SCH ×3 (06:37→23:39)
[2018-01-31] MEDS: LEVOTHYROXINE 25 MCG TABLET PO SCH (06:39)
[2018-01-31 07:16] LABS: Calcium 9.2 MG/DL (8.5-10.1); Osmolality,Calculated 280.3 MOS/KG (273-304); Potassium 4.1 MMOL/L (3.5-5.1); Thyroid Stimulating Hormone 1.67 uIU/ml (0.358-3.74)
[2018-01-31] MEDS ORDERED: ASPIRIN 325 MG TABLET PO SCH (09:00)
[2018-01-31] MEDS ORDERED: CITALOPRAM 20 MG TABLET PO SCH (09:00)
[2018-01-31] MEDS ORDERED: PROPOFOL 200 MG/20 ML VIAL IV ONE (10:00)
[2018-01-31] MEDS ORDERED: SEVOFLURANE 1 UNIT/15 MINUTE INH ONE (10:00)
[2018-01-31] MEDS ORDERED: fentaNYL 100 MCG/2 ML VIAL ONE (10:00)
[2018-01-31] MEDS ORDERED: ONDANSETRON 4 MG/2 ML VIAL ONE (10:01)
[2018-01-31] MEDS ORDERED: MIDAZOLAM 2 MG/2 ML VIAL ONE (10:01)
[2018-01-31] MEDS: ATORVASTATIN 10 MG TABLET PO SCH (11:28)
[2018-01-31] MEDS: AMIODARONE 200 MG TABLET PO SCH (11:28)
[2018-01-31] MEDS: TAMSULOSIN 0.4 MG CAPSULE PO SCH (11:28)
[2018-01-31] MEDS: PANTOPRAZOLE 40 MG TABLET PO SCH (11:29)
[2018-01-31] MEDS: FINASTERIDE 5 MG TABLET PO SCH (11:29)
[2018-01-31] MEDS: LINEZOLID INJ 600 MG in PREMIX 1 EACH IV SCH ×2 (11:30→23:40)
[2018-01-31] MEDS: MORPHINE 2 MG/1 ML SYRINGE IV PRN ×2 (14:16→23:37)
[2018-01-31] MEDS: MELATONIN 3 MG TABLET PO SCH (21:18)
[2018-01-31] MEDS: LACTATED RINGERS 1,000 ML IV SCH (23:40)
[2018-02-01] MEDS ORDERED: GENTAMICIN IV SCH
[2018-02-01] MEDS ORDERED: SODIUM CHLORIDE 0.9% IV SCH
[2018-02-01] MEDS: AZTREONAM 2,000 MG in SYRINGE 1 EACH IV SCH ×3 (06:37→23:19)
[2018-02-01] MEDS: LEVOTHYROXINE 25 MCG TABLET PO SCH (06:38)
[2018-02-01 06:48] LABS: Basophils % 0.8 % (0.0-0.8); Eosinophils # 0.4 10*3/uL (0.0-0.87); Eosinophils % 7.3 % (0.00-10.9); Hematocrit 31.9 VOL% (42.0-52.0); Immature Granulocytes % 0.2 %; Immature Granulocytes Absolute 0.01 #; Lymphocytes # 0.9 10*3/uL (1.4-4.0); Mean Corpuscular HGB Conc 31.3 GM/DL (32-36); Mean Corpuscular Hemoglobin 32 PG (27-34); Mean Corpuscular Volume 101.3 FL (87-102); Mean Platelet Volume 9.9 FL (9.6-12.0); Monocytes # 0.5 10*3/uL (0.11-0.8); Monocytes % 9.6 % (1.7-12.7); Neutrophils # 3.4 10*3/uL (1.4-7.4); Neutrophils % 65.1 % (38.7-73.9); Platelet Count 108 T/CUMM (130-400); Red Blood Count 3.15 MC/CUMM (3.8-5.5); Red Cell Distribution Width 13.8 % (9.3-17.3); White Blood Count 5.2 T/CUMM (4-12)
[2018-02-01 07:18] LABS: Calcium 8.6 MG/DL (8.5-10.1); Osmolality,Calculated 279.3 MOS/KG (273-304); Potassium 4.1 MMOL/L (3.5-5.1)
[2018-02-01] MEDS: LACTATED RINGERS 1,000 ML IV SCH ×2 (07:58→21:12)
[2018-02-01] MEDS: FINASTERIDE 5 MG TABLET PO SCH (07:59)
[2018-02-01] MEDS: ATORVASTATIN 10 MG TABLET PO SCH (07:59)
[2018-02-01] MEDS: PANTOPRAZOLE 40 MG TABLET PO SCH (07:59)
[2018-02-01] MEDS: AMIODARONE 200 MG TABLET PO SCH (07:59)
[2018-02-01] MEDS: TAMSULOSIN 0.4 MG CAPSULE PO SCH (07:59)
[2018-02-01] MEDS: MORPHINE 2 MG/1 ML SYRINGE IV PRN (09:55)
[2018-02-01] MEDS: LINEZOLID INJ 600 MG in PREMIX 1 EACH IV SCH ×2 (09:59→23:24)
[2018-02-01] MEDS: MELATONIN 3 MG TABLET PO SCH (20:37)
[2018-02-02 06:42] LABS: Basophils % 0.6 % (0.0-0.8); Eosinophils # 0.3 10*3/uL (0.0-0.87); Eosinophils % 6.7 % (0.00-10.9); Hemoglobin 10.3 GM/DL (14.0-18.0); Immature Granulocytes % 0.6 %; Immature Granulocytes Absolute 0.03 #; Lymphocytes % 21.3 % (21.2-54.2); Mean Corpuscular HGB Conc 32.2 GM/DL (32-36); Mean Corpuscular Hemoglobin 32 PG (27-34); Mean Corpuscular Volume 100.6 FL (87-102); Mean Platelet Volume 9.7 FL (9.6-12.0); Monocytes # 0.5 10*3/uL (0.11-0.8); Monocytes % 10.5 % (1.7-12.7); Neutrophils # 2.9 10*3/uL (1.4-7.4); Neutrophils % 60.3 % (38.7-73.9); Platelet Count 120 T/CUMM (130-400); Red Blood Count 3.18 MC/CUMM (3.8-5.5); Red Cell Distribution Width 13.5 % (9.3-17.3); White Blood Count 4.8 T/CUMM (4-12)
[2018-02-02] MEDS: AZTREONAM 2,000 MG in SYRINGE 1 EACH IV SCH (07:05)
[2018-02-02 07:10] LABS: Osmolality,Calculated 276.4 MOS/KG (273-304); Potassium 4.1 MMOL/L (3.5-5.1)
[2018-02-02] MEDS: LEVOTHYROXINE 25 MCG TABLET PO SCH (09:39)
[2018-02-02] MEDS: AMIODARONE 200 MG TABLET PO SCH (09:41)
[2018-02-02] MEDS: ATORVASTATIN 10 MG TABLET PO SCH (09:41)
[2018-02-02] MEDS: PANTOPRAZOLE 40 MG TABLET PO SCH (09:41)
[2018-02-02] MEDS: FINASTERIDE 5 MG TABLET PO SCH (09:41)
[2018-02-02] MEDS: TAMSULOSIN 0.4 MG CAPSULE PO SCH (09:44)
[2018-02-02] MEDS: LACTATED RINGERS 1,000 ML IV SCH (09:48)
[2018-02-02] MEDS: LINEZOLID INJ 600 MG in PREMIX 1 EACH IV SCH (11:09)
[2018-02-02] MEDS ORDERED: DEXTROSE 50% 25 GM/50 ML VIAL IV PRN (14:22)
[2018-02-02] MEDS ORDERED: GLUCAGON 1 MG VIAL IM PRN (14:22)
[2018-02-02 21:26] VITALS: BP 98/75
== END 2018-02-02 15:30 | DRG 690 ==
LOC: N.5E 01-30 12:56 → EDSTATUS 01-31 14:15
PROVIDERS: ADMIT Surgery; ATTEND Surgery

== ENCOUNTER 2021-06-10 01:58 | Inpatient (IN) ==
[2021-06-10] MEDS ORDERED: SODIUM CHLORIDE 0.9% 1,000 ML IV STA ×2 (03:05→06:22)
[2021-06-10] MEDS ORDERED: PANTOPRAZOLE 40 MG VIAL IV STA (03:05)
[2021-06-10] MEDS ORDERED: ONDANSETRON 4 MG/2 ML VIAL IV STA (03:05)
[2021-06-10 03:27] LABS: Basophils % 0.5 % (0.0-0.8); Eosinophils # 0.1 10*3/uL (0.0-0.87); Eosinophils % 3.8 % (0.00-10.9); Hematocrit 26.5 VOL% (42.0-52.0); Hemoglobin 8.2 GM/DL (14.0-18.0); Lymphocytes # 1.8 10*3/uL (1.4-4.0); Lymphocytes % 47.7 % (21.2-54.2); Mean Corpuscular HGB Conc 30.9 GM/DL (32-36); Mean Corpuscular Volume 105.2 FL (87-102); Mean Platelet Volume 10.5 FL (9.6-12.0); Monocytes % 9.4 % (1.7-12.7); Neutrophils % 38.6 % (38.7-73.9); Platelet Count 137 T/CUMM (130-400); Red Blood Count 2.52 MC/CUMM (3.8-5.5); Red Cell Distribution Width 13.2 % (9.3-17.3); White Blood Count 3.7 T/CUMM (4-12)
[2021-06-10 03:41] LABS: INR 1.1; PT Patient Result 11.9 SECS (10.5-12.0)
[2021-06-10 03:45] LABS: Alanine Aminotransferase 10 U/L (16-61); Albumin 2.9 G/DL (3.4-5.0); Alkaline Phosphatase 36 U/L (45-117); Aspartate Amino Transferase 18 U/L (0-37); Bilirubin,Total < 0.39 MG/DL (0.20-1.00); Blood Urea Nitrogen 21 MG/DL (7-18); Carbon Dioxide 27 MMOL/L (21-32); Estimated Glom Filtration Rate 116 ML/MIN; Glucose 94 MG/DL (74-106); Osmolality,Calculated 288.8 MOS/KG (273-304); Potassium 4.3 MMOL/L (3.5-5.1); Sodium 144 MMOL/L (136-145); Total Protein 5.9 G/DL (6.4-8.2)
[2021-06-10 03:55] LABS: Eosinophils 3 % (0-10); Hypochromasia 1+; Lymphocytes 42 % (20-55); Microcytosis 1+; Platelet Estimate Normal; Segmented Neutrophils 42 % (50-85); Total Cells Counted 100
[2021-06-10] MEDS ORDERED: GLUCAGON 1 MG VIAL IM PRN (05:08)
[2021-06-10] MEDS ORDERED: ONDANSETRON 4 MG/2 ML VIAL IV PRN (05:08)
[2021-06-10] MEDS ORDERED: DEXTROSE 50% 25 GM/50 ML VIAL IV PRN (05:08)
[2021-06-10] MEDS ORDERED: SODIUM CHLORIDE 0.9% 1,000 ML IV PRN ×2 (06:19→09:28)
[2021-06-10 08:36] LABS: Basophils % 0.4 % (0.0-0.8); Eosinophils # 0.1 10*3/uL (0.0-0.87); Eosinophils % 4.2 % (0.00-10.9); Hematocrit 22.3 VOL% (42.0-52.0); Hemoglobin 7.1 GM/DL (14.0-18.0); Immature Granulocytes % 0.4 %; Immature Granulocytes Absolute 0.01 #; Lymphocytes # 1.2 10*3/uL (1.4-4.0); Mean Corpuscular HGB Conc 31.8 GM/DL (32-36); Mean Corpuscular Volume 106.2 FL (87-102); Mean Platelet Volume 9.1 FL (9.6-12.0); Monocytes % 8.4 % (1.7-12.7); Neutrophils % 40.6 % (38.7-73.9); Platelet Count 104 T/CUMM (130-400); Red Cell Distribution Width 13.2 % (9.3-17.3); White Blood Count 2.6 T/CUMM (4-12)
[2021-06-10] MEDS ORDERED: PANTOPRAZOLE 40 MG VIAL IV SCH (09:00)
[2021-06-10 09:05] LABS: Hypochromasia 1+; Microcytosis 1+; Platelet Estimate Decreased
[2021-06-10] MEDS: PANTOPRAZOLE INJ 200 MG in SODIUM CHLORIDE 0.9% 250 ML IV SCH (10:12)
[2021-06-10] MEDS ORDERED: BISACODYL 5 MG TABLET PO ONE (15:00)
[2021-06-10 16:10] LABS: Basophils % 0.6 % (0.0-0.8); Eosinophils # 0.1 10*3/uL (0.0-0.87); Eosinophils % 2.8 % (0.00-10.9); Hematocrit 23.4 VOL% (42.0-52.0); Hemoglobin 7.1 GM/DL (14.0-18.0); Immature Granulocytes % 0.3 %; Immature Granulocytes Absolute 0.01 #; Lymphocytes # 1.3 10*3/uL (1.4-4.0); Lymphocytes % 39.4 % (21.2-54.2); Mean Corpuscular HGB Conc 30.3 GM/DL (32-36); Mean Corpuscular Volume 108.3 FL (87-102); Mean Platelet Volume 9.8 FL (9.6-12.0); Monocytes % 9.7 % (1.7-12.7); Neutrophils % 47.2 % (38.7-73.9); Platelet Count 129 T/CUMM (130-400); Red Blood Count 2.16 MC/CUMM (3.8-5.5); Red Cell Distribution Width 13.2 % (9.3-17.3); White Blood Count 3.2 T/CUMM (4-12)
[2021-06-10] MEDS ORDERED: POLYETHYLENE GLYCOL POWDER 255 GM BOTTLE PO ONE (18:00)
[2021-06-10 21:09] LABS: Basophils % 0.3 % (0.0-0.8); Eosinophils # 0.1 10*3/uL (0.0-0.87); Eosinophils % 2.6 % (0.00-10.9); Hematocrit 24.3 VOL% (42.0-52.0); Hemoglobin 7.6 GM/DL (14.0-18.0); Immature Granulocytes % 0.3 %; Immature Granulocytes Absolute 0.01 #; Lymphocytes # 1.4 10*3/uL (1.4-4.0); Lymphocytes % 46.4 % (21.2-54.2); Mean Corpuscular HGB Conc 31.3 GM/DL (32-36); Mean Corpuscular Volume 105.7 FL (87-102); Monocytes % 10.2 % (1.7-12.7); Neutrophils % 40.2 % (38.7-73.9); Platelet Count 116 T/CUMM (130-400); Red Cell Distribution Width 14.2 % (9.3-17.3)
[2021-06-10 21:32] LABS: Eosinophils 1 % (0-10); Lymphocytes 44 % (20-55); Macrocytosis 2+; Platelet Estimate Adequate; Segmented Neutrophils 49 % (50-85); Total Cells Counted 100
[2021-06-11] MEDS ORDERED: POLYETHYLENE GLYCOL POWDER 255 GM BOTTLE PO ONE ×2 (05:00→11:43)
[2021-06-11] MEDS: PANTOPRAZOLE INJ 200 MG in SODIUM CHLORIDE 0.9% 250 ML IV SCH (05:37)
[2021-06-11 05:59] LABS: Basophils % 0.9 % (0.0-0.8); Eosinophils # 0.1 10*3/uL (0.0-0.87); Eosinophils % 4.3 % (0.00-10.9); Hematocrit 27.7 VOL% (42.0-52.0); Hemoglobin 8.9 GM/DL (14.0-18.0); Immature Granulocytes % 0.3 %; Immature Granulocytes Absolute 0.01 #; Lymphocytes # 1.5 10*3/uL (1.4-4.0); Lymphocytes % 47.1 % (21.2-54.2); Mean Corpuscular HGB Conc 32.1 GM/DL (32-36); Mean Corpuscular Volume 103.4 FL (87-102); Mean Platelet Volume 9.3 FL (9.6-12.0); Monocytes % 10.1 % (1.7-12.7); Neutrophils % 37.3 % (38.7-73.9); Platelet Count 117 T/CUMM (130-400); Red Blood Count 2.68 MC/CUMM (3.8-5.5); Red Cell Distribution Width 14.5 % (9.3-17.3); White Blood Count 3.3 T/CUMM (4-12)
[2021-06-11 06:11] LABS: INR 1.1; PT Patient Result 11.8 SECS (10.5-12.0)
[2021-06-11 06:21] LABS: Calcium 8.5 MG/DL (8.5-10.1); Osmolality,Calculated 294.3 MOS/KG (273-304); Potassium 3.3 MMOL/L (3.5-5.1)
[2021-06-11 07:01] LABS: Eosinophils 7 % (0-10); Lymphocytes 48 % (20-55); Platelet Estimate Decreased; Polychromasia 2+; Segmented Neutrophils 40 % (50-85); Total Cells Counted 100
[2021-06-11 07:02] LABS: Anisocytosis 2+; Macrocytosis 2+
[2021-06-11] MEDS ORDERED: MAGNESIUM CITRATE 300 ML BOTTLE PO ONE (07:12)
[2021-06-11] MEDS ORDERED: LACTATED RINGERS 1,000 ML IV SCH (08:00)
[2021-06-11] MEDS ORDERED: SODIUM CHLORIDE 0.9% 1,000 ML IV PRN (08:48)
[2021-06-11 09:26] LABS: Hematocrit 31.6 VOL% (42.0-52.0); Hemoglobin 10.2 GM/DL (14.0-18.0)
[2021-06-11] MEDS ORDERED: POTASSIUM CHLORIDE 20 MEQ/15 ML UDCUP PER TUBE PRN (12:39)
[2021-06-11 17:42] LABS: Hematocrit 30.4 VOL% (42.0-52.0); Hemoglobin 9.7 GM/DL (14.0-18.0)
[2021-06-11] MEDS: INSULIN LISPRO 100 UNIT/ML SUBCUT SCH ×2 (17:47→21:56)
[2021-06-11] MEDS ORDERED: POTASSIUM CHLORIDE 20 MEQ PACK PER TUBE PRN (18:30)
[2021-06-11] MEDS: PANTOPRAZOLE 40 MG VIAL IV SCH (22:09)
[2021-06-12 01:07] LABS: Hematocrit 30.7 VOL% (42.0-52.0); Hemoglobin 9.8 GM/DL (14.0-18.0)
[2021-06-12 01:22] LABS: Calcium 9.1 MG/DL (8.5-10.1); Osmolality,Calculated 284.8 MOS/KG (273-304); Potassium 3.1 MMOL/L (3.5-5.1)
[2021-06-12] MEDS ORDERED: MAGNESIUM CITRATE 300 ML BOTTLE PO ONE (05:00)
[2021-06-12 05:23] LABS: Basophils % 0.6 % (0.0-0.8); Eosinophils # 0.1 10*3/uL (0.0-0.87); Eosinophils % 3.8 % (0.00-10.9); Hematocrit 31.6 VOL% (42.0-52.0); Hemoglobin 10.3 GM/DL (14.0-18.0); Lymphocytes # 1.5 10*3/uL (1.4-4.0); Lymphocytes % 46.9 % (21.2-54.2); Mean Corpuscular HGB Conc 32.6 GM/DL (32-36); Mean Corpuscular Volume 101.6 FL (87-102); Mean Platelet Volume 9.3 FL (9.6-12.0); Monocytes % 11.9 % (1.7-12.7); Neutrophils % 36.8 % (38.7-73.9); Platelet Count 141 T/CUMM (130-400); Red Blood Count 3.11 MC/CUMM (3.8-5.5); White Blood Count 3.2 T/CUMM (4-12)
[2021-06-12 05:51] LABS: Eosinophils 2 % (0-10); Lymphocytes 52 % (20-55); Segmented Neutrophils 41 % (50-85); Total Cells Counted 100
[2021-06-12 05:52] LABS: Anisocytosis 1+; Hypochromasia Slight; Macrocytosis 1+; Ovalocytes Slight; Platelet Estimate Adequate
[2021-06-12 05:53] LABS: Atypical Lymphocytes Few
[2021-06-12] MEDS: POTASSIUM CHLORIDE RIDER 10 MEQ/100 ML PREMIX IV PRN ×5 (06:31→23:59)
[2021-06-12] MEDS: INSULIN LISPRO 100 UNIT/ML SUBCUT SCH ×4 (07:37→22:55)
[2021-06-12] MEDS: LACTATED RINGERS 1,000 ML IV SCH (08:31)
[2021-06-12 09:25] LABS: Hemoglobin 9.8 GM/DL (14.0-18.0)
[2021-06-12] MEDS ORDERED: ETOMIDATE 20 MG/10 ML VIAL IV ONE (09:51)
[2021-06-12] MEDS ORDERED: propofoL 200 MG/20 ML VIAL IV ONE (09:51)
[2021-06-12] MEDS ORDERED: LIDOCAINE 2% 5 ML VIAL ONE (09:51)
[2021-06-12] MEDS ORDERED: PHENYLEPHRINE 1 MG/10 ML SYRINGE IV ONE (09:51)
[2021-06-12] MEDS: PANTOPRAZOLE 40 MG VIAL IV SCH ×2 (11:34→22:58)
[2021-06-13] MEDS: POTASSIUM CHLORIDE RIDER 10 MEQ/100 ML PREMIX IV PRN ×2 (02:55→08:29)
[2021-06-13 06:49] LABS: Basophils % 0.2 % (0.0-0.8); Eosinophils % 0.1 % (0.00-10.9); Hematocrit 32.1 VOL% (42.0-52.0); Hemoglobin 10.5 GM/DL (14.0-18.0); Immature Granulocytes % 0.4 %; Immature Granulocytes Absolute 0.06 #; Lymphocytes # 1.5 10*3/uL (1.4-4.0); Lymphocytes % 10.8 % (21.2-54.2); Mean Corpuscular HGB Conc 32.7 GM/DL (32-36); Mean Corpuscular Volume 101.3 FL (87-102); Mean Platelet Volume 9.4 FL (9.6-12.0); Monocytes % 6.9 % (1.7-12.7); Neutrophils % 81.6 % (38.7-73.9); Platelet Count 141 T/CUMM (130-400); Red Blood Count 3.17 MC/CUMM (3.8-5.5); Red Cell Distribution Width 13.6 % (9.3-17.3); White Blood Count 14.2 T/CUMM (4-12)
[2021-06-13 07:17] LABS: Band Neutrophils 2 % (0-10); Calcium 8.6 MG/DL (8.5-10.1); Lymphocytes 8 % (20-55); Osmolality,Calculated 280.3 MOS/KG (273-304); Platelet Estimate Adequate; Potassium 3.9 MMOL/L (3.5-5.1); Segmented Neutrophils 86 % (50-85); Total Cells Counted 100
[2021-06-13 07:18] LABS: Hypochromasia 1+; Microcytosis 1+
[2021-06-13] MEDS: LACTATED RINGERS 1,000 ML IV SCH (08:00)
[2021-06-13] MEDS: INSULIN LISPRO 100 UNIT/ML SUBCUT SCH ×4 (08:14→21:33)
[2021-06-13] MEDS: PANTOPRAZOLE 40 MG VIAL IV SCH ×2 (10:12→21:42)
[2021-06-13 14:49] LABS: Bilirubin,Urine Negative (Negative); Blood, Urine Moderate mg/dL (Negative); Glucose,Urine (UA) Negative (Negative); Ketones,Urine Negative (Negative); Mucus,Urine Occasional /LPF (Occasional); Nitrite,Urine Negative (Negative); Protein,Urine Negative; RBC,Urine 3 /HPF (0-4); Squamous Epithelial Cell,Urine Occasional /HPF (0-10); Urine Appearance Slightly Hazy (Clear); Urine Color Yellow (Yellow); Urine Specific Gravity 1.005 (1.001-1.035); Urine Urobilinogen < 2.0 EU/DL (0.2-1.0)
[2021-06-14 06:47] LABS: Basophils % 0.2 % (0.0-0.8); Eosinophils # 0.2 10*3/uL (0.0-0.87); Eosinophils % 1.6 % (0.00-10.9); Hematocrit 29.8 VOL% (42.0-52.0); Hemoglobin 9.7 GM/DL (14.0-18.0); Immature Granulocytes % 0.8 %; Immature Granulocytes Absolute 0.07 #; Lymphocytes # 1.3 10*3/uL (1.4-4.0); Lymphocytes % 13.5 % (21.2-54.2); Mean Corpuscular HGB Conc 32.6 GM/DL (32-36); Mean Corpuscular Volume 103.5 FL (87-102); Mean Platelet Volume 9.3 FL (9.6-12.0); Monocytes % 5.1 % (1.7-12.7); Neutrophils % 78.8 % (38.7-73.9); Platelet Count 120 T/CUMM (130-400); Red Blood Count 2.88 MC/CUMM (3.8-5.5); Red Cell Distribution Width 13.8 % (9.3-17.3); White Blood Count 9.2 T/CUMM (4-12)
[2021-06-14 07:07] LABS: Eosinophils 1 % (0-10); Hypochromasia 1+; Lymphocytes 12 % (20-55); Microcytosis 1+; Platelet Estimate Normal; Segmented Neutrophils 84 % (50-85); Total Cells Counted 100
[2021-06-14 07:12] LABS: Osmolality,Calculated 283.8 MOS/KG (273-304); Potassium 4.3 MMOL/L (3.5-5.1)
[2021-06-14] MEDS: LACTATED RINGERS 1,000 ML IV SCH (08:00)
[2021-06-14] MEDS: PANTOPRAZOLE 40 MG VIAL IV SCH ×2 (10:08→21:40)
[2021-06-14] MEDS: INSULIN LISPRO 100 UNIT/ML SUBCUT SCH ×4 (10:12→22:11)
[2021-06-14] MEDS: LEVOFLOXACIN INJ 500 MG/100 ML PREMIX IV SCH (10:18)
[2021-06-15 05:15] LABS: Basophils % 0.2 % (0.0-0.8); Eosinophils # 0.2 10*3/uL (0.0-0.87); Eosinophils % 3.4 % (0.00-10.9); Hematocrit 27.7 VOL% (42.0-52.0); Hemoglobin 8.8 GM/DL (14.0-18.0); Immature Granulocytes % 0.4 %; Immature Granulocytes Absolute 0.02 #; Lymphocytes # 1.3 10*3/uL (1.4-4.0); Lymphocytes % 23.9 % (21.2-54.2); Mean Corpuscular HGB Conc 31.8 GM/DL (32-36); Mean Corpuscular Volume 104.1 FL (87-102); Mean Platelet Volume 10.1 FL (9.6-12.0); Monocytes % 5.2 % (1.7-12.7); Neutrophils % 66.9 % (38.7-73.9); Platelet Count 125 T/CUMM (130-400); Red Blood Count 2.66 MC/CUMM (3.8-5.5); Red Cell Distribution Width 13.7 % (9.3-17.3); White Blood Count 5.5 T/CUMM (4-12)
[2021-06-15 05:38] LABS: Calcium 8.5 MG/DL (8.5-10.1); Potassium 3.8 MMOL/L (3.5-5.1)
[2021-06-15 05:46] LABS: Eosinophils 1 % (0-10); Hypochromasia Slight; Lymphocytes 20 % (20-55); Platelet Estimate Normal; Segmented Neutrophils 74 % (50-85); Total Cells Counted 100
[2021-06-15] MEDS: INSULIN LISPRO 100 UNIT/ML SUBCUT SCH ×4 (07:40→22:27)
[2021-06-15] MEDS: LEVOFLOXACIN INJ 500 MG/100 ML PREMIX IV SCH (10:41)
[2021-06-15] MEDS: LACTATED RINGERS 1,000 ML IV SCH (10:41)
[2021-06-15] MEDS: PANTOPRAZOLE 40 MG VIAL IV SCH ×2 (10:42→21:17)
[2021-06-15] MEDS: DOCUSATE SODIUM 100 MG CAPSULE PO SCH ×2 (10:42→21:18)
[2021-06-15] MEDS: TAMSULOSIN 0.4 MG CAPSULE PO SCH (10:42)
[2021-06-15] MEDS: FINASTERIDE 5 MG TABLET PO SCH (10:43)
[2021-06-15] MEDS: ASCORBIC ACID 500 MG TABLET PO SCH ×2 (10:43→21:18)
[2021-06-15] MEDS: MIDODRINE 5 MG TABLET PO SCH ×3 (10:43→21:21)
[2021-06-15] MEDS: CHOLECALCIFEROL 5,000 UNIT TABLET PO SCH (10:43)
[2021-06-15] MEDS: ALBUTEROL/IPRATROPIUM 3 ML NEB RESP TX SCH ×2 (13:37→19:33)
[2021-06-15] MEDS ORDERED: MEROPENEM 2,000 MG in SODIUM CHLORIDE 0.9% 100 ML IV SCH (15:00)
[2021-06-15] MEDS: MEROPENEM 500 MG in SODIUM CHLORIDE 0.9% 100 ML IV SCH ×3 (17:20→22:28)
[2021-06-16] MEDS: ALBUTEROL/IPRATROPIUM 3 ML NEB RESP TX SCH ×4 (02:07→19:31)
[2021-06-16] MEDS: LEVOTHYROXINE 75 MCG TABLET PO SCH (06:20)
[2021-06-16] MEDS: MEROPENEM 500 MG in SODIUM CHLORIDE 0.9% 100 ML IV SCH (06:48)
[2021-06-16] MEDS: INSULIN LISPRO 100 UNIT/ML SUBCUT SCH ×4 (07:31→20:37)
[2021-06-16 08:35] LABS: Basophils % 0.6 % (0.0-0.8); Eosinophils # 0.1 10*3/uL (0.0-0.87); Eosinophils % 2.3 % (0.00-10.9); Hematocrit 27.5 VOL% (42.0-52.0); Hemoglobin 8.9 GM/DL (14.0-18.0); Immature Granulocytes % 0.3 %; Immature Granulocytes Absolute 0.01 #; Lymphocytes # 1.3 10*3/uL (1.4-4.0); Lymphocytes % 36.7 % (21.2-54.2); Mean Corpuscular HGB Conc 32.4 GM/DL (32-36); Mean Corpuscular Volume 102.6 FL (87-102); Mean Platelet Volume 9.7 FL (9.6-12.0); Monocytes % 7.6 % (1.7-12.7); Neutrophils % 52.5 % (38.7-73.9); Platelet Count 127 T/CUMM (130-400); Red Blood Count 2.68 MC/CUMM (3.8-5.5); Red Cell Distribution Width 13.5 % (9.3-17.3); White Blood Count 3.4 T/CUMM (4-12)
[2021-06-16 09:05] LABS: Calcium 8.3 MG/DL (8.5-10.1); Osmolality,Calculated 289.6 MOS/KG (273-304); Potassium 3.8 MMOL/L (3.5-5.1)
[2021-06-16] MEDS: CHOLECALCIFEROL 5,000 UNIT TABLET PO SCH (09:27)
[2021-06-16] MEDS: ASCORBIC ACID 500 MG TABLET PO SCH ×2 (09:27→20:35)
[2021-06-16] MEDS: MIDODRINE 5 MG TABLET PO SCH ×3 (09:27→20:35)
[2021-06-16] MEDS: DOCUSATE SODIUM 100 MG CAPSULE PO SCH ×2 (09:27→20:35)
[2021-06-16] MEDS: TAMSULOSIN 0.4 MG CAPSULE PO SCH (09:27)
[2021-06-16] MEDS: PANTOPRAZOLE 40 MG VIAL IV SCH ×2 (09:27→20:35)
[2021-06-16] MEDS: FINASTERIDE 5 MG TABLET PO SCH (09:27)
[2021-06-16] MEDS: ERTAPENEM 1,000 MG in SODIUM CHLORIDE 0.9% 100 ML IV SCH (11:11)
[2021-06-16] MEDS ORDERED: SODIUM CHLORIDE 0.9% 500 ML IV SCH (23:45)
[2021-06-17] MEDS: ALBUTEROL/IPRATROPIUM 3 ML NEB RESP TX SCH ×2 (00:19→06:54)
[2021-06-17] MEDS: LEVOTHYROXINE 75 MCG TABLET PO SCH (05:56)
[2021-06-17 06:09] LABS: Basophils % 0.6 % (0.0-0.8); Eosinophils # 0.2 10*3/uL (0.0-0.87); Eosinophils % 5.4 % (0.00-10.9); Hematocrit 29.6 VOL% (42.0-52.0); Hemoglobin 9.2 GM/DL (14.0-18.0); Immature Granulocytes % 0.3 %; Immature Granulocytes Absolute 0.01 #; Lymphocytes # 1.5 10*3/uL (1.4-4.0); Lymphocytes % 43.8 % (21.2-54.2); Mean Corpuscular HGB Conc 31.1 GM/DL (32-36); Mean Corpuscular Volume 106.1 FL (87-102); Mean Platelet Volume 10.1 FL (9.6-12.0); Monocytes % 8.9 % (1.7-12.7); Platelet Count 136 T/CUMM (130-400); Red Blood Count 2.79 MC/CUMM (3.8-5.5); Red Cell Distribution Width 13.6 % (9.3-17.3); White Blood Count 3.4 T/CUMM (4-12)
[2021-06-17 06:26] LABS: Calcium 8.8 MG/DL (8.5-10.1); Osmolality,Calculated 288.7 MOS/KG (273-304); Potassium 4.4 MMOL/L (3.5-5.1)
[2021-06-17 06:40] LABS: Anisocytosis 1+; Band Neutrophils 1 % (0-10); Eosinophils 8 % (0-10); Lymphocytes 43 % (20-55); Platelet Estimate Adequate; Segmented Neutrophils 43 % (50-85); Total Cells Counted 100
[2021-06-17 06:41] LABS: Macrocytosis 1+
[2021-06-17] MEDS ORDERED: LACTATED RINGERS 250 ML IV ONE (07:03)
[2021-06-17] MEDS: INSULIN LISPRO 100 UNIT/ML SUBCUT SCH ×2 (07:08→11:44)
[2021-06-17] MEDS: MIDODRINE 5 MG TABLET PO SCH (11:22)
[2021-06-17] MEDS: DOCUSATE SODIUM 100 MG CAPSULE PO SCH (11:22)
[2021-06-17] MEDS: TAMSULOSIN 0.4 MG CAPSULE PO SCH (11:22)
[2021-06-17] MEDS: FINASTERIDE 5 MG TABLET PO SCH (11:23)
[2021-06-17] MEDS: ASCORBIC ACID 500 MG TABLET PO SCH (11:23)
[2021-06-17] MEDS: CHOLECALCIFEROL 5,000 UNIT TABLET PO SCH (11:23)
[2021-06-17] MEDS: PANTOPRAZOLE 40 MG VIAL IV SCH (11:23)
[2021-06-17] MEDS: ERTAPENEM 1,000 MG in SODIUM CHLORIDE 0.9% 100 ML IV SCH (11:38)
[2021-06-17 20:55] VITALS: BP 104/53
== END 2021-06-17 13:35 | DRG 813 ==
LOC: EDBD → EDUNIT# → N.ED 01:58 → N.EDINP 01:58 → SUATTDRO 05:08 → N.EDINP 08:04 → N.3E 08:17 → SUATTDRO 09:40
PROVIDERS: ADMIT Internal Medicine; ATTEND Internal Medicine